=== PATIENT | female | born 1975 | race Caucasian/White ===

== ENCOUNTER → 2018-04-06 | Outpatient (CLI) | payer OTHER ==
[~2018-04-06] MED LIST: ACYC200C PO; ARIP5TAB13 PO; CITA40TA5 PO; FLUT1DIS5 IH; IPRA4AER IH; PRAV40TA2 PO; VENTOLIN HFA18 GM IH
--- NOTE | 2018-04-06 10:36 | CARD ---
MR#: [id number] Date of Study: 04/06/2018 Ordering Physician: MONTSE HERNANDES, Referring Physician: MONTSE HERNANDES, Tech: Kassy Miranda COCO APPROVED REPORT EXAM: Two-dimensional and M-mode echocardiogram with Doppler and color Doppler. Other Information Quality : Good INDICATION Dyspnea 2D DIMENSIONS RVDd2.3 (2.9-3.5cm)Left Atrium(2D)2.5 (1.6-4.0cm) IVSd0.8 (0.7-1.1cm)Aortic Root(2D)2.5 (2.0-3.7cm) LVDd4.0 (3.9-5.9cm)LVOT Diameter1.8 (1.8-2.4cm) PWd0.9 (0.7-1.1cm)LVDs2.7 (2.5-4.0cm) FS (%) 32.9 %SV43.9 ml LVEF(%)60.9 (>50%) Aortic Valve AoV Peak Dylan.136.3cm/sAoV VTI27.3cm AO Peak GR.7.4mmHgLVOT Peak Dylan.113.4cm/s AO Mean GR.4mmHgAVA (VMAX)2.13cm2 JOSE (VTI)2.40cm2 Mitral Valve MV E Snxpjaya128.4cm/sMV DECEL BRMB499uo MV A Bleklosd36.8cm/sE/A Ratio2.0 Tricuspid Valve TR P. Oavmnouj121su/sRAP [id number] TR Peak Gr.87upPdWSNP59pzNe Pulmonary Vein S1 Lsrycwga85.8cm/sD2 Lpfqohjr32.9cm/s LEFT VENTRICLE The left ventricle is normal size. There is normal left ventricular wall thickness. The left ventricu lar systolic function is normal and the ejection fraction is within normal range. The Ejection Fracti on is 55-60%. There is normal LV segmental wall motion. The left ventricular diastolic function and f illing is normal for age. RIGHT VENTRICLE The right ventricle is normal size. The right ventricular systolic function is normal. ATRIA The left atrium size is normal. The right atrium size is normal. The interatrial septum is intact wit h no evidence for an atrial septal defect or patent foramen ovale as noted on 2-D or Doppler imaging. AORTIC VALVE The aortic valve is normal in structure and function. Doppler and Color Flow revealed no significant aortic regurgitation. There is no significant aortic valvular stenosis. MITRAL VALVE The mitral valve is calcified but opens well. There is no evidence of mitral valve prolapse. There is no mitral valve stenosis. Doppler and Color-flow revealed trace mitral regurgitation. TRICUSPID VALVE The tricuspid valve is normal in structure and function. Doppler and Color Flow revealed physiologica l tricuspid regurgitation. The PA pressure was estimated at 26 mmHg. There is no tricuspid valve sten osis. PULMONIC VALVE Doppler and Color Flow revealed trace pulmonic valvular regurgitation. There is no pulmonic valvular stenosis. GREAT VESSELS The aortic root is normal in size. The ascending aorta is normal in size. The IVC is normal in size a nd collapses >50% with inspiration. PERICARDIAL EFFUSION There is no evidence of significant pericardial effusion. Critical Notification Critical Value: No <Conclusion> The left ventricular systolic function is normal and the ejection fraction is within normal range. Th e Ejection Fraction is 55-60%. There is normal LV segmental wall motion. Signed by : Caesar Dumont, Electronically Approved : 04/06/2018 10:35:47
== END | disposition home or self-care (01) ==
LOC: ECHO 08:58
PROVIDERS: ATTEND Family Medicine
DX: I07.1 Rheumatic tricuspid insufficiency (principal); I37.1 Nonrheumatic pulmonary valve insufficiency; F17.210 Nicotine dependence, cigarettes, uncomplicated
CPT/HCPCS: 93306

== ENCOUNTER → 2018-04-25 | Outpatient (CLI) | payer OTHER ==
--- NOTE | 2018-04-26 15:53 | SLEEP ---
DATE OF STUDY: 04/25/2018 OBJECTIVE: The patient is a 42-year-old female with excessive somnolence, insomnia, snoring, fatigue, observed apnea. INTERPRETATION: Sleep architecture is characterized by sleep efficiency of 85% across the 6.9 hours of recording time. Stage volumes are appropriate for age. Respiratory monitoring shows a total of 28 events leading to an apnea-hypopnea index of 4.8 events per hour of sleep. Less than 5 events per hour of sleep is considered normal. The REM apnea-hypopnea index is 27 events per hour of sleep. The minimum oxygen saturation is 87. Only a minimal amount of periodic limb movements of sleep are observed. No cardiac arrhythmias are seen. IMPRESSION: Abnormal polysomnogram showing a minimally increased amount of apnea and hypopnea in REM sleep, but overall apnea-hypopnea index is essentially normal. RECOMMENDATIONS: The patient should avoid sedatives and alcohol, pursue weight loss, avoid the supine position, and one could consider empirically starting the patient on CPAP as there is variability from one night to the next in the severity of sleep apnea. Thank you for letting us help with the patient's care. MARY HILL MD DR: STACI/blair JOB#: [id number] / [id number] MONTSE Thomas MD
== END | disposition home or self-care (01) ==
LOC: SLPLAB 18:21
PROVIDERS: ATTEND Psychiatry & Neurology Neurology with Special Qualifications in Child Neurology
DX: G47.33 Obstructive sleep apnea (adult) (pediatric) (principal)
CPT/HCPCS: 95810